=== PATIENT | male | born 1980 | race Caucasian/White ===

== ENCOUNTER 2022-09-16 00:43 | Emergency (ER) | payer OTHER, SELFPAY ==
[2022-09-16 00:53] VITALS: BP 101/44; PULSE 63; RESP 18; TEMP 36.2; O2SAT 99; BMI 20.5
--- NOTE | 2022-09-16 02:19 | ED.EYEPROB ---
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 since then been watering, light sensitive Related Data Previous Rx's Medication Instructions Recorded tobramycin 0.3 % eye drops 1 drp ophthalmic (eye) Q4H #5 mL 09/16/22 Allergies Allergy/AdvReac Type Severity Reaction Status Date / Time No Known Allergies Allergy Verified 09/16/22 00:55 Review of Systems Review of Systems: Yes all other systems are reviewed and are negative PMFSH Social History Social History Advance Directives: No Advance Directives Information Provided: Yes Physical Exam Vital Signs: Vital Signs: Last Vital Signs Temp 97.2 F 09/16/22 00:53 Pulse 63 09/16/22 00:53 Resp 18 09/16/22 00:53 BP 101/44 L 09/16/22 00:53 Pulse Ox 99 09/16/22 00:53 O2 Del Method 09/16/22 00:53 BMI result Body Mass Index 20.5 Eyes: Eyes/upper lids images: 1. Small dirt particle at 11:00 o'clock positions Medical Decision Making Medical Decision Making MDM Narrative: Patient with metal dust particles and right eye unable to remove the full particle advised to follow with Dr. Jean Procedures FB Removal Eye Location: eye (R) Topical anesthetic used: tetracaine Foreign body: metal Evidence of corneal penetration: No Technique: needle Procedure performed under: direct visualization with magnification Post-procedure medication: topical anesthetic Patient tolerated procedure: well Complications: incomplete foreign body removal Discharge Plan Discharge Clinical Impression: Corneal abrasion, Corneal foreign body Patient Disposition: Home, Self-Care Instructions: Corneal Abrasion (ED), Eye Foreign Body (ED) Additional Instructions: Care as advised Use antibiotic eyedrops 1 drop every 4-6 hours until better Foreign body is partially removed is still your small piece of metal dust you right eye need to be seen and removed by continuous pickling line pickler please follow-up Prescriptions: New tobramycin 0.3 % drops 1 drp ophthalmic (eye) Q4H Qty: 5 0RF Referrals: Bud Jean [Physician] - 3 days
[2022-09-16] MEDS: Tetracaine HCl/PF 0.5% Oph Sol 4 ML DROPS 3 DROP EYE-RIGHT (02:57)
[2022-09-16] MEDS: Tobramycin Sulfate 0.3% Sol Op 5 ML BTL 2 DROP EYE-RIGHT (02:57)
[2022-09-16] MEDS: Fluorescein Sodium STRIP 1 STRIP EYE-RIGHT (02:57)
--- NOTE | 2022-09-16 03:00 | PC.NURSE ---
pt medicated according to dr ana hickey administered medications. pt ambulatory at discharge. pt reports having a ride [place] from [facility] [place]. pt verbalizes understanding of discharge plan
== END 2022-09-16 03:01 | disposition home or self-care (01) ==
PROVIDERS: Emergency Provider Internal Medicine
DX: T15.01XA Foreign body in cornea, right eye, initial encounter (principal); X58.XXXA Exposure to other specified factors, initial encounter; Y93.89 Activity, other specified; Y92.038 Other place in apartment as the place of occurrence of the external cause; Y99.9 Unspecified external cause status
CPT/HCPCS: 65220; 99284